=== PATIENT | female | born 1985 ===

== ENCOUNTER 2016-08-01 02:40 | Emergency (ER) | payer SELFPAY ==
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
== END 2016-08-01 03:35 ==
LOC: DL.ED 02:40
DX: F19.10 Other psychoactive substance abuse, uncomplicated (principal)
CPT/HCPCS: 74000; 80305; 81025; 99281; 99284